=== PATIENT | male | born 1935 | race Caucasian/White ===

== ENCOUNTER → 2021-04-29 14:00 | Outpatient (CLI) | payer MEDICARE, SELFPAY ==
--- NOTE | 2021-04-29 14:06 | CA_ITS ---
APPROVED REPORT Bilateral Lower Extremity Venous Study for DVT. Trade Marker: Shey Monroe RVT Indications Lower Extremity Pain: Bilateral Lower Extremity Edema: Bilateral Vein Imaging CFV (R): compressive, spontaneous, phasic, augmentation FEM (R): compressive, spontaneous, phasic, augmentation POP (R): compressive, spontaneous, phasic, augmentation PTV (R): Compressible GSV (R): Compressible Peroneals (R):Compressible GAS (R): Compressible CFV (L): compressive, spontaneous, phasic, augmentation FEM (L): compressive, spontaneous, phasic, augmentation POP (L): compressive, spontaneous, phasic, augmentation PTV (L): Compressible GSV (L): Compressible Peroneals (L):Compressible GAS (L): Compressible Findings Study suggests no evidence of DVT or SVT of the bilateral lower extremites. Conclusion Study suggests no evidence of DVT or SVT of the bilateral lower extremites. 4x1 cm Woo's cyst Electronically signed by : Eduardo Agarwal MD 04/29/2021 17:23:24
== END ==
PROVIDERS: PCP Family Medicine; Visit Provider Family Medicine
DX: M79.604 Pain in right leg (principal); M79.605 Pain in left leg
CPT/HCPCS: 93970

== ENCOUNTER 2021-09-02 08:11 | Outpatient (CLI) | payer MEDICARE, SELFPAY ==
--- NOTE | 2021-09-02 | US_ITS ---
FINAL REPORT CLINICAL HISTORY: .diff urinating-- retretention I called ordering physand a catheter was placed-- last images were post void drained by cath FINDINGS: ULTRASOUND BLADDER The urinary bladder is markedly distended. There is no meaningful change on postvoid. IMPRESSION: Markedly distended bladder with large postvoid residual. Bladder outlet obstruction or neurogenic bladder should be considered. Reviewed, Interpreted and Dictated by Jaskaran Bernal MD Transcribed by Keven Vázquez Authenticated by Jaskaran Bernal MD on 09/02/2021 04:25:[address] [facility]
--- NOTE | 2021-09-02 08:15 | US_ITS ---
FINAL REPORT CLINICAL HISTORY: ABD DISCOMFORT,INCOMPLETE EMPTYING OF BLADDER FINDINGS: ABDOMINAL ULTRASOUND COMPLETE: TECHNIQUE: Ultrasound images of the abdomen were obtained. FINDINGS: The liver is fatty infiltrated. There are gallstones in the gallbladder. The common duct is normal. The right kidney measures 10.5 cm in length. There is cortical thinning without hydronephrosis. The left kidney measures 9.5 cm in length. There is cortical thinning without hydronephrosis. The spleen is unremarkable. The aorta is normal in caliber. The vena cava is unremarkable. IMPRESSION: Cholelithiasis. Fatty liver. Reviewed, Interpreted and Dictated by Jaskaran Bernal MD Transcribed by Keven Vázquez Authenticated by Jaskaran Bernal MD on 09/02/2021 04:50:[address] [facility]
[2021-09-02 10:47] VITALS: BMI 24.1
[2021-09-02 10:54] LABS: Microscopic, Urine URINE MICROSCOPIC (MICROSCOPIC)
[2021-09-02 10:55] LABS: Appearance,Urine CLEAR (Clear); Bilirubin,Urine Negative (Negative); Blood, Urine Negative (Negative); Color,Urine YELLOW (Yellow); Glucose,Urine (UA) Negative (Negative); Ketones,Urine Negative (Negative); Leukocyte Esterase,Urine Negative (Negative); Nitrate,Urine Negative (Negative); PH,Urine 5.5 (5.0-8.5); Protein,Urine Negative (Negative); Specific Gravity, Urine 1.025 (1.005-1.030); Urobilinogen,Urine 0.2 EU/dl (0.2)
[2021-09-02 11:14] LABS: RBC,Urine Occasional #/hpf (0-3); WBC,Urine Occasional #/hpf (0-3)
== END 2021-09-02 10:00 | disposition home or self-care (01) ==
LOC: RAD 08:12 → INF 10:05
PROVIDERS: PCP Family Medicine; Visit Provider Family Medicine
DX: R10.9 Unspecified abdominal pain (principal); R10.84 Generalized abdominal pain; R33.9 Retention of urine, unspecified; R19.00 Intra-abdominal and pelvic swelling, mass and lump, unspecified site
CPT/HCPCS: 76700; 76857; 81001; G0463

== ENCOUNTER → 2021-09-04 10:37 | Outpatient (CLI) | payer MEDICARE, SELFPAY ==
--- NOTE | 2021-09-04 10:42 | CT_ITS ---
FINAL REPORT TECHNIQUE: Axial images through the abdomen and pelvis were performed without contrast. This study was performed with techniques to keep radiation doses as low as reasonably achievable, (ALARA). Individualized dose reduction techniques using automated exposure control or adjustment of mA and/or kV according to the patient's size were employed. CLINICAL HISTORY: prostate issues. arellano catheter placed. FINDINGS: Abdomen: There is scarring in the lung bases. The liver parenchyma is homogeneous. There are stones in the neck of the gallbladder. The spleen, pancreas, adrenals and kidneys are unremarkable. Pelvis: The urinary bladder is decompressed around a Arellano catheter. The appendix is normal. There is no pelvic mass or inflammation. The prostate measures 7 cm in transverse dimensions. IMPRESSION: Moderately enlarged prostate. No blastic lesions. Cholelithiasis. Reviewed, Interpreted and Dictated by Jaskaran Bernal MD Transcribed by Keven Vázquez Authenticated by Jaskaran Bernal MD on 09/04/2021 01:34:50 PM [facility]
== END ==
PROVIDERS: PCP Family Medicine; Visit Provider Urology
DX: N40.1 Benign prostatic hyperplasia with lower urinary tract symptoms (principal)
CPT/HCPCS: 74176

== ENCOUNTER → 2021-09-05 13:41 | Outpatient (CLI) | payer MEDICARE, SELFPAY | PROVIDERS: Visit Provider Urology | DX: N40.1 Benign prostatic hyperplasia with lower urinary tract symptoms (principal); Z01.812 Encounter for preprocedural laboratory examination; Z11.52 Encounter for screening for COVID-19 | CPT/HCPCS: C9803; U0003; U0005 ==

== ENCOUNTER 2021-09-08 07:56 | Day surgery (SDC) | payer MEDICARE, SELFPAY ==
[2021-09-05 11:33] VITALS: BMI 21.9
[2021-09-08 08:08] VITALS: BP 153/74; PULSE 83; RESP 16; TEMP 36.2; O2SAT 98
[2021-09-08 10:31] VITALS: BP 136/74; PULSE 75; RESP 18; O2SAT 97
--- NOTE | 2021-09-08 11:04 | SUR.OPER ---
1021 detailed report provided to GINETTE Sandy
--- NOTE | 2021-09-08 11:59 | HMH.OPNOTE ---
Date of procedure: 09/08/21 Pre-op Diagnosis:: BPH with urinary retention Post-op Diagnosis:: Same Procedure performed:: Cystoscopy Surgeon:: Vincenzo Hoff MD Anesthesia: local Estimated blood loss (mL): 0 Clinical Note:: 86-year-old white male with recent urinary retention. CT scan shows a large prostate but no evidence of hydronephrosis. He presents for cystoscopic evaluation. He has a Gonzalez catheter in place. Operative findings:: Patient with large prostate and mild trabeculation the bladder. Operative note:: Patient taken to the cystoscopy suite after informed consent was obtained. He was prepped and draped in the standard surgical fashion and 2% lidocaine placed into the urethra and clamped. After 5 minutes flexible cystoscope introduced into the urethral meatus in the past to the prostatic urethra which showed trilobar hyperplasia. The bladder was entered and examined in a systematic fashion. The bladder was filled with 500 cc of water. The bladder examined in a systematic fashion. There was some mild trabeculation present but no cellules or diverticula. The scope was retroflexed showing a large median lobe. The ureteral orifices were partially obscured by the median lobe. Scope then removed and patient allowed to stand and try to void but he was unable to. 16 Upper Sorbian Gonzalez catheter was replaced. Transported to the recovery room and we discussed the findings and a TURP was recommended and we discussed the procedure and complications with the patient and the family. At this up at his earliest convenience. Condition: stable Disposition: same day Specimens:: None Complications:: None
== END 2021-09-08 10:35 | disposition home or self-care (01) ==
LOC: OUTP 07:58
PROVIDERS: PCP Family Medicine; Visit Provider Urology
DX: N40.1 Benign prostatic hyperplasia with lower urinary tract symptoms (principal); R33.8 Other retention of urine; E78.5 Hyperlipidemia, unspecified; I10 Essential (primary) hypertension; Z79.899 Other long term (current) drug therapy
CPT/HCPCS: 51045

== ENCOUNTER → 2021-09-26 11:00 | Outpatient (CLI) | payer MEDICARE, SELFPAY ==
[2021-09-26 11:06] LABS: MANUAL DIFFERENTIAL MANUAL DIFFERENTIAL (MANUAL DIFF)
[2021-09-26 11:49] LABS: Basophils # 0.1 K/mm3 (0-0.2); Basophils % 0.6 % (0.1-2.0); Eosinophils # 0.2 K/mm3 (0.0-0.4); Eosinophils % 1.8 % (0.1-12.0); Hematocrit 41.5 % (42.0-52.0); Hemoglobin 13.9 g/dL (14.1-18.0); Lymphocytes # 2.1 K/mm3 (0.7-4.5); Lymphocytes % 22.3 % (10-50); Mean Corpuscular HGB Conc 33.6 g/dL (31.8-35.4); Mean Corpuscular Hemoglobin 30.3 pg (27.0-31.2); Mean Corpuscular Volume 90.4 fl (80-94); Mean Platelet Volume 7.6 fl (7.4-10.4); Monocytes # 0.5 K/mm3 (0.1-1.0); Monocytes % 5.4 % (1.7-9.3); Neutrophils # 6.5 K/mm3 (1.8-7.8); Neutrophils % 69.9 % (37.0-80.0); Platelet Count 217 K/mm3 (142-424); Red Blood Count 4.59 M/mm3 (4.60-6.20); Red Cell Distribution Width 13.2 % (11.5-17.5); White Blood Count 9.4 K/mm3 (4.8-10.8)
[2021-09-26 12:34] LABS: Chloride 102 mmol/L (98-107); Sodium 135 mmol/L (136-145)
[2021-09-26 12:37] LABS: Blood Urea Nitrogen 28 mg/dl (9-20); Carbon Dioxide 29 mmol/L (22.0-30.0); Estimated Glomerular Filt Rate 52 ml/min (>60); GFR (African American) 63 ML/MIN (>60)
[2021-09-26 12:38] LABS: Calcium 8.2 mg/dl (8.4-10.2); Glucose 95 mg/dl (74-100)
[2021-09-26 13:15] LABS: Eosinophils % 2 % (0-3); Lymphocytes % 18 % (10-50); Monocytes % 6 % (2-9); Neutrophils % 74 % (42-76); Platelet Estimate Normal; Total Cells Counted 100
== END ==
PROVIDERS: Visit Provider Urology
DX: Z01.812 Encounter for preprocedural laboratory examination; Z11.52 Encounter for screening for COVID-19; N40.1 Benign prostatic hyperplasia with lower urinary tract symptoms; I10 Essential (primary) hypertension; E78.5 Hyperlipidemia, unspecified
CPT/HCPCS: 36415; 80048; 85007; 85014; 85018; 85048; 85049; C9803; U0003; U0005

== ENCOUNTER 2021-09-29 07:59 | Observation (INO) | payer MEDICARE, SELFPAY ==
[2021-09-25 11:52] VITALS: BMI 22.6
[2021-09-29] VITALS (19 sets, daily range): BP systolic 103–151; BP diastolic 62–77; PULSE 67–83; RESP 12–18; TEMP 36.6–43; O2SAT 93–98; BMI 22.6
--- NOTE | 2021-09-29 08:25 | HMH.PHAVTE ---
[facility] Pharmacy VTE Monitoring - Patient Demographics Admission date: 09/29/21 Report Date: 09/29/21 Time: 08:25 Allergies/Adverse Reactions: Patient Allergies No Known Allergies Allergy (Verified 09/29/21 08:23) Height: 1.8 m Weight: 73.482 kg - Prophylaxis VTE Prophylaxis Ordered?: Yes Types of VTE Prophylaxis: TEDS Knee High Location of Applied Device: Bilateral Lower Extremeties
--- NOTE | 2021-09-29 09:22 | HMH.ANESCL ---
[facility] Anesthesia Checklist - Patient Identification Patient Identification: Arm Band - Structural Data Admitted From: Home Planned Operative Procedure/s: TURP Consent for Planned Operative Procedure(s) Verified: Yes - NPO Status Verified Time NPO: 00:00 - Additional verifications Anesthesia Reactions: No Hx Blood Transfusions: No - Airway Assessment C-Spine Mobility Assessed: Yes TMJ Mobility Assessed: Yes Dentition: Edentulous - Neurological Assessment Level of Consciousness: Awake Hx Seizures: No Numbness or tingling in extremities: No - Anesthesia Plan Anesthesia Risk discussed: Yes Anesthesia Plan: Verified ASA Class: III Anesthesia Type: General [facility] History I have reviewed the patient's past medical history: Yes Medical History: Reports:: Gastroesophageal Reflux Disease(GERD), Hyperlipidemia, Hypertension Denies:: Cancer, Diabetes Mellitus Type 1, Diabetes Mellitus Type 2, Internal Pacemaker, MRSA, Seizures *Have you ever received a pneumonia vaccine?: Yes *Have you received a flu vaccine this season?: Yes Anesthesia experience/problems:: None Laterality Cases: Bilateral: Tonsillectomy Other Surgeries: Yes: Appendectomy. No: Pacemaker Amputation: No Fractures: No - *Social History Last grade of school completed: High school graduate Smoking Status: Never smoker Alcohol Intake: never Substance Use Type: denies use *Occupational Status:: retired, disabled Housing: house Household Members: spouse *Travel in the last 8 weeks: None Family Hx:: No significant family history
--- NOTE | 2021-09-29 10:16 | HMH.PHAINT ---
MEDICATION RECONCILIATION COMPLETED ON PATIENT USING EXTERNAL FILL HISTORY FROM PHARMACY. -BRENDA KAY, MUNIRD
--- NOTE | 2021-09-29 11:04 | SUR.OPER ---
1040- arellano catheter removed prior to procedure
--- NOTE | 2021-09-29 12:39 | P.PN_ITS ---
[facility] Anesthesia Record Part I Intake, IV Amount: 1,500 Estimated blood loss (mL): 0 Urine output (mL): 0 Blood Pressure: 151/77 SaO2: 95 Pulse Rate: 83 Respiratory Rate: 12 Temperature: 99.2 F Patient is:: Awake, Stable Stable to PACU at:: 12:35
[2021-09-29 13:14] LABS: Influenza A, PCR Not Detected (NotDetected); Influenza B, PCR Not Detected (NotDetected)
--- NOTE | 2021-09-29 13:21 | PC.NURSE ---
1302-detailed report called to GINETTE Magallon 1309-pt transported to 2nd floor room 219 via hospital bed with rakesh rails up and left in care of GINETTE Magallon with bed locked in lowest position, vss, pt stable
[2021-09-29 13:50] LABS: Coronavirus 19, PCR Detected (NotDetected)
--- NOTE | 2021-09-29 16:08 | P.OP_ITS ---
Date of procedure: 09/29/21 Pre-op Diagnosis:: BPH with urinary retention Post-op Diagnosis:: Same Procedure performed:: Transurethral resection of prostate Surgeon:: Vincenzo Hoff MD DIRECTOR OF FINANCIAL REPORTING:: Donta Britton Anesthesia: LMA Estimated blood loss (mL): 10 Clinical Note:: 86-year-old white male with a urinary retention. He is known to have [address] is shown enlarged prostate. Previous cystoscopy has shown trilobar hyperplasia. Operative findings:: Cystoscopy reveals large bladder capacity and trilobar hyperplasia bladder findings of bladder outlet obstruction including moderate trabeculation and diffuse cellule formation. Operative note:: Patient taken to the operating room after informed consent was obtained. Placed on the operating table in the supine position and general anesthesia administered. Preoperative antibiotics and sequential compression devices placed. Patient then placed into the dorsal lithotomy position and prepped draped in the standard surgical fashion. The 22 Syrian cystoscope passed into the urethra and into the bladder. The bladder was examined in a systematic fashion. It was a high bladder capacity and there was moderate trabeculation noted throughout the floor the bladder and some cellules. Ureteral orifices in their normal anatomic position with clear efflux of urine. The cystoscope then removed and our 26 Syrian resectoscope sheath passed into the eye bladder. The resectoscope passed through the sheath and dissection began at the bladder neck resecting it in a circumferential fashion. We then resected the floor of the prostatic urethra back to the verumontanum. We then resected the left lobe of the prostate in a counterclockwise fashion back to the be removed. There was some anterior tissue that was resected as well. Patient's right side the prostate was resected in a clockwise fashion back to the [facility]. Apical tissue was resected as stage III of the resection. Hemostasis achieved and all the prostatic chips were evacuated. The chips were sent off to pathology. A 22 Syrian three-way catheter passed without difficulty and 30 cc placed into the balloon. Gonzalez was hooked up to continuous bladder irrigation. Patient tolerated procedure well no complications. Condition: stable Disposition: PACU Specimens:: Prostatic tissue Complications:: None
[2021-09-30] VITALS: BP 105/62; PULSE 72; RESP 16; TEMP 36.7; O2SAT 95
[2021-09-30 05:40] LABS: Basophils % 0.1 % (0.1-2.0); Eosinophils % 0.2 % (0.1-12.0); Hematocrit 34.9 % (42.0-52.0); Hemoglobin 11.6 g/dL (14.1-18.0); Lymphocytes # 0.8 K/mm3 (0.7-4.5); Lymphocytes % 6.5 % (10-50); Mean Corpuscular HGB Conc 33.2 g/dL (31.8-35.4); Mean Corpuscular Hemoglobin 30.6 pg (27.0-31.2); Mean Corpuscular Volume 92.3 fl (80-94); Mean Platelet Volume 8.6 fl (7.4-10.4); Monocytes # 0.5 K/mm3 (0.1-1.0); Monocytes % 3.9 % (1.7-9.3); Neutrophils # 11.4 K/mm3 (1.8-7.8); Neutrophils % 89.3 % (37.0-80.0); Platelet Count 165 K/mm3 (142-424); Red Blood Count 3.78 M/mm3 (4.60-6.20); Red Cell Distribution Width 13.6 % (11.5-17.5); White Blood Count 12.8 K/mm3 (4.8-10.8)
[2021-09-30 05:42] LABS: MANUAL DIFFERENTIAL MANUAL DIFFERENTIAL (MANUAL DIFF)
[2021-09-30 05:44] LABS: Chloride 107 mmol/L (98-107); Sodium 131 mmol/L (136-145)
[2021-09-30 05:45] LABS: Potassium 4.1 mmoL/L (3.5-5.1)
[2021-09-30 05:47] LABS: Anion Gap 6.1 mEq/L (5-15); Blood Urea Nitrogen 24 mg/dl (9-20); Carbon Dioxide 22 mmol/L (22.0-30.0); Creatinine Clearance Estimated 55 mL/min (50-200); Estimated Glomerular Filt Rate 71 ml/min (>60); GFR (African American) 86 ML/MIN (>60)
[2021-09-30 05:48] LABS: Glucose 130 mg/dl (74-100)
[2021-09-30 05:59] VITALS: BMI 23.3
[2021-09-30 06:10] LABS: Lymphocytes % 9 % (10-50); Neutrophils % 91 % (42-76); Total Cells Counted 100
[2021-09-30 06:12] LABS: Platelet Estimate Normal; RBC Morphology Normal
--- NOTE | 2021-09-30 07:13 | P.PN_ITS ---
[facility] Anesthesia Record Part II Discharge Time: 13:05 Destination: Second Floor PACU nurse assessment reviewed?: Yes Patient Condition:: Good Anesthesia Complications:: None Swallowing reflex intact?: Yes Cyanosis?: No Blood Pressure: 128/66 Pulse Rate: 80 Temperature: 98.7 F Mental Status: Alert & Oriented Pain level:: 0 Nausea and/or vomitting:: None Intake, IV Amount: 0
[2021-09-30 07:14] VITALS: BP 128/66; PULSE 80; TEMP 37.1
--- NOTE | 2021-09-30 07:38 | PC.NURSE ---
during morning chart check, it was noticed that COVID PCR from yesterday resulted in a positive. This was not given to me in report. There is no sign on pt's door. television production clerk (Amna Goel) and propellant charge loader (Crystal Hernández RN) notified. Sign placed on pt's door. Will notify Dr. Hoff during rounds.
[2021-09-30 08:00] VITALS: BP 113/60; PULSE 83; RESP 18; TEMP 36.3; O2SAT 95
--- NOTE | 2021-09-30 09:37 | HMH.ACPN2 ---
Internal Medicine - PN: Subj *Date: 09/30/21 *Time: 09:37 Interval history: Patient is status post transurethral resection of prostate yesterday. His urine is pink on minimal irrigation this morning. He denies any postoperative problems. He is tolerating a diet and is abdomen is soft. Exam Vital signs and Labs for Last 24 Hours: Temp Pulse Resp BP Pulse Ox 97.4 F L 83 18 113/60 95 09/30/21 08:00 09/30/21 08:00 09/30/21 08:00 09/30/21 08:00 09/30/21 08:00 Laboratory Results - last 24 hr 09/29/21 13:07: SARS-CoV-2 (PCR) Detected A, Influenza A Untype (PCR) Not detected, Influenza Type B (PCR) Not detected 09/30/21 05:19: WBC 12.8 H, RBC 3.78 L, Hgb 11.6 L, Hct 34.9 L, MCV 92.3, MCH 30.6, MCHC 33.2, RDW 13.6, Plt Count 165, MPV 8.6, Neut % (Auto) 89.3 H, Lymph % (Auto) 6.5 L, [place] % (Auto) 3.9, Eos % (Auto) 0.2, Baso % (Auto) 0.1, Neut # (Auto) 11.4 H, Lymph # (Auto) 0.8, [place] # (Auto) 0.5, Eos # (Auto) 0.0, Baso # (Auto) 0.0, Total Counted 100, Neutrophils % (Manual) 91 H, Lymphocytes % (Manual) 9 L, Platelet Estimate Normal, RBC Morphology Normal 09/30/21 05:19: Sodium 131 L, Potassium 4.1, Chloride 107, Carbon Dioxide 22, Anion Gap 6.1, BUN 24 H, Creatinine 1.00, Estimated Creat Clear 55, Estimated GFR 71, Est GFR ( Amer) 86, Glucose 130 H, Calcium 7.0 L I & O for Last 24 hours: Intake & Output 09/27/21 09/28/21 09/29/21 09/30/21 23:59 23:59 23:59 23:59 Intake Total 1800 / 1800 760 / 760 Output Total 1950 / 1950 400 / 400 Balance -150 / -150 360 / 360 Weight 73.4 kg 75.6 kg - Constitutional no acute distress - *Routine HEENT Exam Head: Present: normocephalic Eye: Present: EOMI, PERRL ENT: Present: mucous membranes moist - *Routine Neck Exam Present: supple. Absent: lymphadenopathy - *Routine Respiratory Exam Absent: accessory muscle use - *Routine Cardiovascular Exam Absent: JVD - *Routine Abdominal Exam Present: soft. Absent: tenderness, guarding - *Routine Extremities Exam Absent: cyanosis, clubbing, edema - *Routine Skin Exam Present: warm. Absent: rash - *Routine Neurological Exam Present: alert, oriented X3 Assessment and Plan (1) BPH loc w urin obs/LUTS Status: Acute Category: Medical Code(s): N40.1 - Benign prostatic hyperplasia with lower urinary tract symptoms Postop day 1 status post transurethral section of prostate. Patient denies any complaints and is tolerating a diet. His urine is pink on minimal irrigation. Plan is to discontinue the CBI today and allow him to get up and walk around. His urine remains clear we will discharge home later today with his Gonzalez catheter.
--- NOTE | 2021-09-30 13:01 | HMH.PHAINT ---
Discharge counseling complete. Informed pt of medication to stop taking. Informed pt of new medication, purpose, how to take, potential side effects. Pt understood and had no questions or concerns.
--- NOTE | 2021-09-30 15:49 | HMH.HP3 ---
*Admission Date: 09/29/21 *Chief complaint: BPH with obstruction *History of present illness: Patient is an 86-year-old white male with BPH and incomplete bladder emptying. His residuals are almost 1 L and cystoscopy has revealed trilobar hyperplasia with high bladder capacity. He presents for transurethral section of prostate. [facility] History Medical History: Reports:: Gastroesophageal Reflux Disease(GERD), Hyperlipidemia, Hypertension Denies:: Cancer, Diabetes Mellitus Type 1, Diabetes Mellitus Type 2, Internal Pacemaker, MRSA, Seizures *Have you ever received a pneumonia vaccine?: No *Have you received a flu vaccine this season?: No Anesthesia experience/problems:: None Laterality Cases: Bilateral: Tonsillectomy Other Surgeries: Yes: Appendectomy. No: Pacemaker Amputation: No Fractures: No - *Social History Last grade of school completed: High school graduate Smoking Status: Never smoker Alcohol Intake: never Substance Use Type: denies use *Occupational Status:: retired Housing: house Household Members: spouse *Travel in the last 8 weeks: None Family Hx:: Hyperlipidemia, Hypertension Review of Systems - Review of Systems Review of systems:: pertinent systems reviewed and negative unless documented below Med Rec Allergies Allergy/AdvReac Type Severity Reaction Status Date / Time No Known Allergies Allergy Verified 09/29/21 08:23 Exam Vital signs and Labs for Last 24 Hours: Temp Pulse Resp BP Pulse Ox 97.4 F L 83 18 113/60 95 09/30/21 08:00 09/30/21 08:00 09/30/21 08:00 09/30/21 08:00 09/30/21 08:00 Laboratory Results - last 24 hr 09/30/21 05:19: WBC 12.8 H, RBC 3.78 L, Hgb 11.6 L, Hct 34.9 L, MCV 92.3, MCH 30.6, MCHC 33.2, RDW 13.6, Plt Count 165, MPV 8.6, Neut % (Auto) 89.3 H, Lymph % (Auto) 6.5 L, Vance % (Auto) 3.9, Eos % (Auto) 0.2, Baso % (Auto) 0.1, Neut # (Auto) 11.4 H, Lymph # (Auto) 0.8, Vance # (Auto) 0.5, Eos # (Auto) 0.0, Baso # (Auto) 0.0, Total Counted 100, Neutrophils % (Manual) 91 H, Lymphocytes % (Manual) 9 L, Platelet Estimate Normal, RBC Morphology Normal 09/30/21 05:19: Sodium 131 L, Potassium 4.1, Chloride 107, Carbon Dioxide 22, Anion Gap 6.1, BUN 24 H, Creatinine 1.00, Estimated Creat Clear 55, Estimated GFR 71, Est GFR ( Amer) 86, Glucose 130 H, Calcium 7.0 L I & O for Last 24 hours: Intake & Output 09/27/21 09/28/21 09/29/21 09/30/21 23:59 23:59 23:59 23:59 Intake Total 1800 / 1800 760 / 760 Output Total 1950 / 1950 400 / 400 Balance -150 / -150 360 / 360 Weight 73.4 kg 75.6 kg - Constitutional no acute distress - *Routine HEENT Exam Head: Present: normocephalic Eye: Present: EOMI, PERRL ENT: Present: mucous membranes moist - *Routine Neck Exam Present: supple. Absent: lymphadenopathy - *Routine Respiratory Exam Absent: accessory muscle use - *Routine Cardiovascular Exam Absent: JVD - *Routine Abdominal Exam Present: soft. Absent: tenderness - *Routine Rectal Exam Rectal:: deferred - *Routine Genitalia Exam Genitalia:: deferred - *Routine Extremities Exam Absent: cyanosis, clubbing, edema - *Routine Skin Exam Present: warm. Absent: rash - *Routine Neurological Exam Present: alert, oriented X3 Assessment and Plan (1) BPH loc w urin obs/LUTS Status: Acute Category: Medical Code(s): N40.1 - Benign prostatic hyperplasia with lower urinary tract symptoms 86-year-old white male with BPH and incomplete bladder emptying. He presents for transurethral section of prostate today. Risk and complications of the procedure have been discussed at length.
--- NOTE | 2021-09-30 15:52 | HMH.DCSUM ---
General - General Admission date:: 09/29/21 Discharge date: 09/30/21 HPI HPI: Patient is an 86-year-old white male with BPH and incomplete bladder emptying. His residuals are almost 1 L and cystoscopy has revealed trilobar hyperplasia with high bladder capacity. He presents for transurethral section of prostate. Hospital Course Hospital Course: Patient admitted to the hospital on 09/29/2021 and taken to the operating room where transurethral section of prostate was performed. No complications were encountered. He was discharged to the floor postoperatively where he did well. On postop day 1 his urine was pink on very slow irrigation. He was tolerating a diet and able to ambulate. His CBI was turned off and he was able to ambulate in his room. I will check back on him in the afternoon and his urine still looked slightly pink. We discussed discharge to home and instructions to drink liberally and restrict any strenuous activities. He will go home with his Gonzalez catheter for tamponade purposes. I will see him back this Wednesday. He was discharged home on an antibiotic. Objective Vital signs: Temp Pulse Resp BP Pulse Ox 97.4 F L 83 18 113/60 95 09/30/21 08:00 09/30/21 08:00 09/30/21 08:00 09/30/21 08:00 09/30/21 08:00 Results Labs on day of discharge: Labs from last 24 hours 09/30/21 09/30/21 05:19 05:19 WBC 12.8 H RBC 3.78 L Hgb 11.6 L Hct 34.9 L MCV 92.3 MCH 30.6 MCHC 33.2 RDW 13.6 Plt Count 165 MPV 8.6 Neut % (Auto) 89.3 H Lymph % (Auto) 6.5 L Benzie % (Auto) 3.9 Eos % (Auto) 0.2 Baso % (Auto) 0.1 Neut # (Auto) 11.4 H Lymph # (Auto) 0.8 Benzie # (Auto) 0.5 Eos # (Auto) 0.0 Baso # (Auto) 0.0 Total Counted 100 Neutrophils % (Manual) 91 H Lymphocytes % (Manual) 9 L Platelet Estimate Normal RBC Morphology Normal Sodium 131 L Potassium 4.1 Chloride 107 Carbon Dioxide 22 Anion Gap 6.1 BUN 24 H Creatinine 1.00 Estimated Creat Clear 55 Estimated GFR 71 Est GFR ( Amer) 86 Glucose 130 H Calcium 7.0 L DS: Diagnosis - Discharge Diagnosis (1) BPH loc w urin obs/LUTS Status: Acute Discharge Plan - Patient Discharge Instructions ACTIVITY: No heavy lifting DIET: continue same diet Patient Instructions: How to Care for Your Gonzalez Catheter -- Male, DI for Transurethral Resection of the Prostate, DI for Benign Prostatic Hyperplasia, Catheter-associated Urinary Tract Infection - Follow up Plan Follow up with: Vincenzo Hoff MD [Staff Physician] - 10/03/21 3:15 pm Disposition: Home, Self-Care Condition at discharge:: Stable Home Medications: Home Medications Medication Instructions Recorded Confirmed Type chlorthalidone 25 mg tablet 25 mg PO DAILY 09/04/21 09/29/21 History losartan 100 mg tablet 100 mg PO DAILY 09/04/21 09/29/21 History meclizine 12.5 mg tablet 12.5 mg PO TIDP PRN tab 09/04/21 09/29/21 History omeprazole 20 mg capsule,delayed 20 mg PO DAILY 09/04/21 09/29/21 History release simvastatin 20 mg tablet 20 mg PO HS tab 09/04/21 09/29/21 History Betamethasone/Propylene Glyc 1 applicatio TP DAILY 09/29/21 09/29/21 History [Betamethasone Dp Aug 0.05% Crm] Finasteride [Proscar 5mg Tablet] 5 mg PO DAILY 09/29/21 09/29/21 History Fluocinonide 1 applicatio TP BID 09/29/21 09/29/21 History Cefdinir [Omnicef 300mg Capsule] 300 mg PO BID 5 Days #10 cap 09/30/21 Rx Prescriptions/Medication Reconciliation: New Cefdinir [Omnicef 300mg Capsule] 300 mg PO BID 5 Days #10 cap Continued losartan 100 mg tablet 100 mg PO DAILY meclizine 12.5 mg tablet 12.5 mg PO TIDP PRN tab PRN Reason: Dizziness simvastatin 20 mg tablet 20 mg PO HS tab chlorthalidone 25 mg tablet 25 mg PO DAILY omeprazole 20 mg capsule,delayed release 20 mg PO DAILY Finasteride [Proscar 5mg Tablet] 5 mg PO DAILY Fluocinonide 1 applicatio TP BID Betamethasone/Pro
== END 2021-09-30 13:30 | disposition home or self-care (01) ==
LOC: 2ND 08:00
PROVIDERS: Admitting Provider Urology; PCP Family Medicine; Visit Provider Urology
PROC: 0VT08ZZ Resection of Prostate, Via Natural or Artificial Opening Endoscopic (ICD-10-PCS; CPT 52601; principal; 2021-09-29 09:30)
DX: N40.1 Benign prostatic hyperplasia with lower urinary tract symptoms (principal); Z20.822 Contact with and (suspected) exposure to COVID-19; R33.8 Other retention of urine
CPT/HCPCS: 52601; G0378; 36415; 80048; 85007; 85025; 96374; C9803; J2405; U0003; U0005

== ENCOUNTER 2023-01-05 08:49 | Outpatient (CLI) | payer MEDICARE, SELFPAY ==
[2023-01-05 09:20] VITALS: BMI 24.9
[2023-01-05 09:34] LABS: Microscopic,Cath URINE MICROSCOPIC (MICROSCOPIC)
[2023-01-05 09:40] LABS: Appearance,Urine/Cath CLOUDY (Clear); Bilirubin,Cath Negative (Negative); Blood, Urine/Cath 3+ (Negative); Color,Urine/Cath YELLOW (Yellow); Glucose,Urine/Cath (UA) Negative (Negative); Ketones,Urine/Cath TRACE (Negative); Leukocyte Esterase,Cath 3+ (Negative); Nitrate,Cath POSITIVE (Negative); Protein,Urine/Cath 1+ (Negative)
[2023-01-05 09:58] LABS: Bacteria,Urine/Cath 1+ /lpf; Mucus,Urine/Cath 1+ /lpf; Squamous Epithelial Ur./Cath Occasional #/hpf (0-5)
== END 2023-01-05 09:27 | disposition home or self-care (01) ==
PROVIDERS: PCP Family Medicine; Visit Provider Family Medicine
DX: Z96.0 Presence of urogenital implants (principal); N39.0 Urinary tract infection, site not specified; B96.1 Klebsiella pneumoniae [K. pneumoniae] as the cause of diseases classified elsewhere
CPT/HCPCS: 81001; 87086; 87088; 87186; G0463

== ENCOUNTER → 2023-01-07 12:29 | Outpatient (CLI) | payer MEDICARE, SELFPAY ==
--- NOTE | 2023-01-07 12:34 | CT_ITS ---
FINAL REPORT TECHNIQUE: After the administration of oral and intravenous contrast, axial images were obtained through the abdomen and pelvis by computed tomography. The study was performed with techniques to keep radiation dose as low as reasonably achievable, (ALARA). Individual dose reduction techniques using automated exposure control or adjustment of mA and/or kV according to the patient's size were employed. CLINICAL HISTORY: ABDOMINAL PAIN,N/V, ABN WEIGHT LOSS COMPARISON: 09/04/2021 FINDINGS: Abdomen: There is extensive scarring at the bases. The liver parenchyma is homogeneous. The gallbladder is distended. The spleen, pancreas, adrenals and kidneys appear unremarkable. The aorta is normal in caliber. There is no free fluid or adenopathy. Pelvis: The appendix is not identified. The urinary bladder is significantly distended. A Gonzalez balloon catheter is identified. Gonzalez catheter is inflated within a prosthetic urethra. Gonzalez catheter should be advanced. There is a moderate amount of stool in the rectum measuring up to 7.9 cm in diameter. There is no evidence of proctitis.. There is no free fluid or adenopathy. IMPRESSION: Mild rectal impaction. Gonzalez balloon inflated within a prosthetic urethra. Reviewed, Interpreted and Dictated by Jaskaran Bernal MD Transcribed by Rocío Blunt Authenticated and [facility]
== END ==
PROVIDERS: PCP Family Medicine; Visit Provider Internal Medicine Gastroenterology
DX: R10.9 Unspecified abdominal pain (principal); R11.2 Nausea with vomiting, unspecified; R63.4 Abnormal weight loss
CPT/HCPCS: 74177; Q9967

== ENCOUNTER 2023-01-08 11:33 | Outpatient (CLI) | payer MEDICARE, SELFPAY ==
--- NOTE | 2023-01-08 16:05 | PC.NURSE ---
1150-PT CAME IN TO HAVE F/C CHECKED FOR PATENCY AND PLACEMENT. PT STATES IT DOESNT SEEM TO BE DRAINING MUCH IT SHOULD AND SOMETIMES HE FEELS LIKE HIS BLADDER IS NOT EMPTYING. TUBING WAS FOUND TO BE KINKED UNDER THE LEG SECUREMENT DEVICE. REMOVED KINK. ALSO DEFLATED BALLOON IN BLADDER AND ONLY 4 ML CAME OUT. REINFLATED BALLOON WITH 10ML STERILE WATER. CATHETER DRAINING PROPERLY AND NO OTHER PROBLEMS NOTED. INSTRUCTIONS GIVEN ON CHECKING TUBING TO C MAKE SURE NO KINKS PRESENT.
== END 2023-01-08 12:15 | disposition home or self-care (01) ==
LOC: INF 11:34
PROVIDERS: PCP Family Medicine; Visit Provider Family Medicine
DX: T83.9XXA Unspecified complication of genitourinary prosthetic device, implant and graft, initial encounter (principal)
CPT/HCPCS: G0463

== ENCOUNTER 2023-01-11 09:25 | Emergency (ER) | payer MEDICARE, SELFPAY ==
[2023-01-11 09:27] VITALS: BP 157/91; PULSE 95; RESP 19; TEMP 36.6; O2SAT 94; BMI 21.6
--- NOTE | 2023-01-11 09:34 | HMH.EDGENADL ---
Discharge Plan Disposition Patient Disposition: Home, Self-Care Condition: Good Prescriptions Prescriptions: No Action losartan 100 mg tablet 100 mg PO DAILY meclizine 12.5 mg tablet 12.5 mg PO TIDP PRN (Reason: Dizziness) simvastatin 20 mg tablet 20 mg PO HS omeprazole 20 mg capsule,delayed release(DR/EC) 20 mg PO DAILY chlorthalidone 25 mg tablet 25 mg PO DAILY gabapentin 100 mg capsule 100 mg PO BID finasteride 5 MG tablet 5 mg PO DAILY Referrals Follow up/Referrals: Aurora Wilder MD [Primary Care Provider] - See instructions Activity Restrictions/Add. Instructions Additional Instructions/Restrictions: You have been evaluated for Gonzalez catheter complication. Urine is now draining freely. Follow-up with your primary care doctor and your urologist. Return to the emergency department for any new or worsening symptoms. Clinical Impressions Clinical Impression: Acute urinary retention, Complication of Gonzalez catheter Instructions Patient Instructions: How to Care for Your Gonzalez Catheter -- Male Discharge ED Provider: Bailey Silva Adult HPI General Chief complaint: Urogenital-Male Stated complaint: urine is not going into catheter Time Seen by Provider: 01/11/23 09:29 Mode of Arrival: Ambulatory Source of Information: Patient and Relative History of Present Illness HPI narrative: 87-year-old male presenting to the emergency department with catheter complication. He has an indwelling Gonzalez catheter. Has had struggles over the last few days. Son states that he has only had about 200 cc of urine in the past day. This is atypical for him. Usually has to empty the bag at least once or twice every day. Patient denies any abdominal pain, fevers, chills, nausea, vomiting. Gonzalez catheter was placed after an injury 1 year ago. He had it checked on Wednesday. There appears to be some whitish specks in the catheter tubing. No known obstruction. He was not taught how to flush the catheter Related Data Home Medications Medication Instructions Recorded Confirmed chlorthalidone 25 mg tablet 25 mg PO DAILY Fluid 09/04/21 01/11/23 losartan 100 mg tablet 100 mg PO DAILY Hypertension 09/04/21 01/11/23 meclizine 12.5 mg tablet 12.5 mg PO TIDP PRN Dizziness 09/04/21 01/11/23 omeprazole 20 mg capsule,delayed 20 mg PO DAILY Reflux/Acid reflux 09/04/21 01/11/23 release simvastatin 20 mg tablet 20 mg PO HS Cholesterol 09/04/21 01/11/23 finasteride 5 mg tablet 5 mg PO DAILY PROSTATE 09/29/21 01/11/23 gabapentin 100 mg capsule 100 mg PO BID Pain 12/15/21 01/11/23 Allergies Allergy/AdvReac Type Severity Reaction Status Date / Time No Known Allergies Allergy Verified 12/15/21 13:16 [facility] Disclaimer: The information contained in this section may have been updated after the patient was seen, as this information can be updated by other users. Social History Smoking Status: Never smoker second hand exposure: No alcohol intake: never substance use type: denies use current occupational status: retired Travel in the last 8 weeks: None household members: spouse housing: house current occupational exposures/hazards: No caffeine: Yes ROS Obtained: Yes All systems reviewed & no additional complaints except as documented Constitutional Constitutional: Denies chills, Denies fever(s) and Denies headache(s) ENT Ears, Nose, Mouth, and Throat: Denies headache(s) Cardiovascular Cardiovascular: Denies dyspnea Respiratory Respiratory: Denies dyspnea and Denies wheezing Gastrointestinal Gastrointestingal: Denies abdominal pain or nausea Genitourinary Male Genitourinary: Denies flank pain and Denies hematuria Musculoskeletal Musculoskeletal: Denies back pain Integumentary/Breasts Skin/Breast: Denies redness and Denies rash Neurologic Neurologic: Denies headache(s) Endocrine Endocrine: Denies poly
--- NOTE | 2023-01-11 09:37 | PC.NURSE ---
bladder scan on pt reveals >[id number], notified ER
[2023-01-11 09:56] LABS: Basophils # 0.1 K/mm3 (0-0.2); Basophils % 0.9 % (0.1-2.0); Eosinophils # 0.3 K/mm3 (0.0-0.4); Eosinophils % 4.2 % (0.1-12.0); Hemoglobin 13.3 g/dL (14.1-18.0); Lymphocytes # 3.1 K/mm3 (0.7-4.5); Lymphocytes % 41.2 % (10-50); Mean Corpuscular HGB Conc 33.4 g/dL (31.8-35.4); Mean Corpuscular Hemoglobin 29.5 pg (27.0-31.2); Mean Corpuscular Volume 88.4 fl (80-94); Mean Platelet Volume 7.6 fl (7.4-10.4); Monocytes # 0.5 K/mm3 (0.1-1.0); Monocytes % 6.9 % (1.7-9.3); Neutrophils # 3.6 K/mm3 (1.8-7.8); Neutrophils % 46.8 % (37.0-80.0); Platelet Count 245 K/mm3 (142-424); Red Blood Count 4.52 M/mm3 (4.60-6.20); Red Cell Distribution Width 14.6 % (11.5-17.5); White Blood Count 7.6 K/mm3 (4.8-10.8)
[2023-01-11 09:58] LABS: Chloride 102 mmol/L (98-107); Potassium 3.5 mmoL/L (3.5-5.1); Sodium 137 mmol/L (136-145)
[2023-01-11 10:01] LABS: Anion Gap 12.5 mEq/L (5-15); Blood Urea Nitrogen 17 mg/dl (9-20); Calcium 8.7 mg/dl (8.4-10.2); Carbon Dioxide 26 mmol/L (22.0-30.0); Creatinine Clearance Estimated 47 mL/min (50-200); Estimated Glomerular Filt Rate 63 ml/min (>60); GFR (African American) 77 ML/MIN (>60); Glucose 113 mg/dl (74-100)
[2023-01-11 10:07] LABS: Appearance,Urine CLEAR (Clear); Bilirubin,Urine Negative (Negative); Blood, Urine TRACE-I (Negative); Color,Urine YELLOW (Yellow); Glucose,Urine (UA) Negative (Negative); Ketones,Urine TRACE (Negative); Leukocyte Esterase,Urine 2+ (Negative); Microscopic, Urine URINE MICROSCOPIC (MICROSCOPIC); Nitrate,Urine POSITIVE (Negative); Protein,Urine TRACE (Negative); Specific Gravity, Urine 1.025 (1.005-1.030); Urobilinogen,Urine 0.2 EU/dl (0.2)
--- NOTE | 2023-01-11 10:14 | PC.NURSE ---
irrigation attempted on indwelling catheter already in place, irrigation was unsuccessful. arellano catheter balloon was deflated and repositioned with again unsuccessful urine return. arellano cather was replaced using uro-jet for comfort. 18f placed with 10cc balloon. immediate urine return noted. urine flow is slow and sediment is noted.
[2023-01-11 10:19] LABS: Bacteria,Urine Trace /lpf; Calcium Oxalate Crystals,Urine Trace /lpf; Squamous Epithelial Cell,Urine Occasional #/hpf (0-5); WBC,Urine 20-50 #/hpf (0-3)
[2023-01-11 10:31] VITALS: BP 148/67; PULSE 72; O2SAT 97
--- NOTE | 2023-01-11 10:43 | PC.NURSE ---
this nurse and charge nurse went back in to reassess bladder scan after replacing arellano, bladder scan shows >386. catheter is draining just slowly.
--- NOTE | 2023-01-11 10:57 | PC.NURSE ---
prior to discharge, 400 ml emptied from arellano catheter
[2023-01-11 11:00] VITALS: BP 148/67; PULSE 72; RESP 16; TEMP 36.7
== END 2023-01-11 11:02 | disposition home or self-care (01) ==
PROVIDERS: Emergency Provider Emergency Medicine; PCP Family Medicine
DX: T83.091A Other mechanical complication of indwelling urethral catheter, initial encounter (principal); N40.1 Benign prostatic hyperplasia with lower urinary tract symptoms; R33.9 Retention of urine, unspecified
CPT/HCPCS: 51702; 80048; 81001; 85025; 87086; 99284; 99285

== ENCOUNTER → 2023-01-14 10:38 | Outpatient (CLI) | payer MEDICARE, SELFPAY ==
--- NOTE | 2023-01-14 10:49 | XR_ITS ---
FINAL REPORT CLINICAL HISTORY: COUGH FINDINGS: There is no evidence of effusion or other pleural disease. The mediastinum has a normal appearance. Moderate right and mild left bibasilar atelectasis is present. The cardiac silhouette is unremarkable. IMPRESSION: Moderate right and mild left bibasilar atelectasis, otherwise unremarkable chest exam. Reviewed, Interpreted and Dictated by Joe Terry MD Transcribed by Samantha Castillo Authenticated and [facility]
== END ==
PROVIDERS: PCP Family Medicine; Visit Provider Family Medicine
DX: R05.1 Acute cough (principal)
CPT/HCPCS: 71046

== ENCOUNTER 2024-05-18 13:57 | Outpatient (CLI) | payer MEDICARE, SELFPAY ==
--- NOTE | 2024-05-18 14:00 | CA_ITS ---
APPROVED REPORT EXAM: Comprehensive 2D, Doppler, and color-flow Echocardiogram [employer]: Shey Monroe RVT Ht: 5 ft 11 in Wt: 156lbs BSA: 1.90 BP: 135/76 mmHg Indications: HTN,HLD 2D Dimensions IVSd 0.92 cm M: 0.6-1.2 LVEF (Visual) 53.60 % PWd 0.85 cm M: 0.6 - 1.2 LA Volume 46.70 mL LVDd 4.19 cm M: 4.2 - 5.9 LA Volume Index 24.58 mL/m2 (M/F) 16-34 LVDs 3.04 cm M: 2.5 - 4.0 M-Mode Dimensions LA Diam 3.77 cm (1.9-4.0) TAPSE 2.43 (<1.7) LV Diastology E Decel Time 387 (160-240 msec) E/A Ratio 0.4 Aortic Valve AI PHT 582.00 ms AO Peak GR. 7.60 mmHg Mitral Valve MV E Max [place]. 44.0 (40-130 cm/s) MV A Velocity 100.0 (40-130 cm/s) E/A Ratio 0.44 MV PHT 113.0 ms Pulmonary Valve PV Peak Velocity 88.0 (50-150 cm/s) Tricuspid Valve TR P. Velocity 258.00 cm/s RAP Estimate 10.00 mmHg RVSP 36.50 mmHg Left Ventricle The left ventricle is normal size. The left ventricular systolic function is normal. The left ventricular ejection fraction is within the normal range. There is increased LV wall thickness. There is normal LV segmental wall motion. Transmitral Doppler flow pattern suggests impaired LV relaxation. LVEF is 55%. Right Ventricle Right ventricle is moderately dilated. The right ventricular systolic function is normal. Atria The left atrium size is normal. The right atrium size is normal. There is no Doppler evidence of interatrial shunt. Aortic Valve The aortic valve is mildly thickened. There is no aortic valvular stenosis. Mild aortic regurgitation. Mitral Valve The mitral valve leaflets are mildly thickened. No evidence of mitral valve stenosis. Trace mitral regurgitation. Tricuspid Valve The tricuspid valve leaflets are thin and pliable. Mild tricuspid regurgitation. RVSP is 25-30 mmHg. Pulmonic Valve The pulmonary valve is normal in structure. Mild pulmonic regurgitation. Great Vessels The aortic root is normal in size. The ascending aorta is mildly dilated, measuring 4.4 cm in diameter. IVC is normal in size and collapses >50% with inspiration. Pericardium There is no pericardial effusion. Other Information Study Quality: Fair Conclusion Normal biventricular systolic function. Moderate RV dilation. Mild AI, mild TR, mild PI. Ascending aorta is mildly dilated, measuring 4.4 cm in diameter. In the setting of dilated proximal ascending aorta on TTE, further evaluation with CTA chest is suggested to accurately evaluate for aortic aneurysms. Electronically signed by : Janee Bentley MD 05/24/2024 11:27:13
== END 2024-05-18 23:59 | disposition home or self-care (01) ==
LOC: RT 13:58
PROVIDERS: PCP Family Medicine; Visit Provider Family Medicine
DX: I38 Endocarditis, valve unspecified (principal); I10 Essential (primary) hypertension
CPT/HCPCS: 93306

== ENCOUNTER 2024-09-13 09:47 | Outpatient (CLI) | payer MEDICARE, SELFPAY ==
--- NOTE | 2024-09-13 09:51 | CT_ITS ---
FINAL REPORT TECHNIQUE: The patient was injected with IV contrast. Axial images were obtained through the chest in a PE protocol. 3-D reconstruction images were also performed. Individualized dose reduction techniques using automated exposure control or adjustment of the MA and/or KV according to patient's size were employed. CLINICAL HISTORY: VALVULAR HEART DISEASE COMPARISON: None FINDINGS: Mediastinal vasculature is adequately opacified. No pulmonary artery filling defects are identified to suggest PE. There is no aortic dissection. There is no axillary adenopathy. A few small scattered mediastinal nodes are noted, not enlarged. The heart size is normal. There is no pericardial or pleural effusion. Stones and sludge are noted in the dependent portion of the gallbladder. Mild scarring is present in the lung bases. IMPRESSION: No pulmonary embolus or dissection Stones and sludge are noted in the dependent portion of the gallbladder. Reviewed, Interpreted and Dictated by Jaskaran Bernal MD Transcribed by Samantha Castillo Authenticated and [facility]
[2024-09-13] MEDS: SODIUM CHLORIDE 0.9% 10ML SYR (RAD ONLY) 10 ML IV (10:29)
[2024-09-13] MEDS: 0.9 % SODIUM CHLORIDE 50 ML VIAL IV (10:29)
[2024-09-13] MEDS: IOPAMIDOL-370 (76%);100ML BOTTLE 80 ML IV (10:30)
== END 2024-09-13 23:59 | disposition home or self-care (01) ==
LOC: RAD 09:47
PROVIDERS: PCP Family Medicine; Visit Provider Family Medicine
DX: I38 Endocarditis, valve unspecified (principal)
CPT/HCPCS: 71275; Q9967